=== PATIENT | female | born 1995 | race Caucasian/White ===

== ENCOUNTER 2023-01-01 11:02 | Emergency (ER) | payer OTHER ==
[~2023-01-01] VITALS: Ht 172.7 cm; Wt 113.4 kg
--- NOTE | 2023-01-01 11:03 | NUR ---
Pt MUSA CHUNG from home, for attempted suicide by taking 60+ pills of Celexa. [employer] accompany pt.
--- NOTE | 2023-01-01 11:10 | NUR ---
Spoke to Dr Phillips at [facility] regarding pt's Celexa overdose.
[2023-01-01] MEDS ORDERED: CHARCOAL ACTIVATED (WITHOUT SORBITOL) 50 G/240 ML BOTTLE PO ONE (11:15)
[2023-01-01] MEDS ORDERED: CHARCOAL ACTIVATED (WITHOUT SORBITOL) 50 G/240 ML BOTTLE ONE (11:21)
[2023-01-01 11:23] LABS: HEMATOCRIT 43.5 % (31.2-41.9); MEAN CORPUSCULAR HEMOGLOBIN 29.1 uug (24.7-32.8); MEAN CORPUSCULAR VOLUME 87.5 fL (75.5-95.3); PLATELET COUNT (AUTO) 373 K/uL (179-408)
[2023-01-01 11:41] LABS: ALANINE AMINOTRANSFERASE 19 U/L (14-59); ALKALINE PHOSPHATASE 86 U/L (50-136); ASPARTATE AMINOTRANSFERASE 18 U/L (15-37); BILIRUBIN,DIRECT 0.1 mg/dL (0.0-0.2); BILIRUBIN,TOTAL 0.5 mg/dL (0.2-1.0); CARBON DIOXIDE 26 mmol/L (21-32); CHLORIDE 104 mmol/L (98-107); CREATININE 0.8 mg/dL (0.6-1.3); GLUCOSE 108 mg/dL (74-106); POTASSIUM 4.2 mmol/L (3.5-5.1); UREA NITROGEN, BLOOD 8 mg/dL (7-18)
[2023-01-01 11:44] LABS: ETHANOL < 3 MG/DL (0-0)
--- NOTE | 2023-01-01 11:45 | NUR ---
Pt placed on 5150 hold for DTS by [facility].
[2023-01-01 11:53] LABS: ACETAMINOPHEN < 2.0 ug/mL (10-30)
[2023-01-01 12:16] LABS: *BILIRUBIN,URIN NEGATIVE (NEGATIVE); *CLARITY,URINE CLEAR (CLEAR); *COLOR,URINE YELLOW (YELLOW); *KETONES,URINE NEGATIVE (NEGATIVE); *UROBILINOGEN,URINE 0.2 E.U./dl (NORMAL); LEUKOCYTE ESTERASE ,URINE 3+ (NEGATIVE); NITRITE, URINE NEGATIVE (NEGATIVE); PH,URINE 6.5 (5.0-8.0); UGLUCOSE NEGATIVE (NEGATIVE)
[2023-01-01 12:18] LABS: *BLOOD, URINE TRACE (NEGATIVE)
[2023-01-01 12:27] LABS: *URINE HCG, QUAL NEGATIVE (NEGATIVE)
--- NOTE | 2023-01-01 12:30 | NUR ---
Recieved info from [facility] for transfering. Attempted to give report, placed on hold for 10 min and unable to.
[2023-01-01 12:33] LABS: *AMPHETAMINE, URINE NEGATIVE (NEGATIVE); *CANNABINOID, URINE POSITIVE (NEGATIVE); *COCCAINE, URINE NEGATIVE (NEGATIVE); *PHENCYCLIDINE SCREEN,URINE NEGATIVE (NEGATIVE)
--- NOTE | 2023-01-01 13:00 | NUR ---
Attempted to give report to [facility], placed on hold for 30 min and still unable to give report. Transfering [facility] ambulance waiting for report.
--- NOTE | 2023-01-01 13:25 | NUR ---
Social Work Consult requested for a 27-year-old female in the ER on a [employer] 5150 hold for attempted suicide by taking 60+ pills of Celexa. The patient states she has bipolar disorder and is having suicidal ideation. Patient states that she has attempted suicide when she was 21 years old. Patient states her primary contact is her , Francis Olivera ([phone]) and they live together at [address] [place] [address]. Patient states she currently works at [employer] and is driving. WAGNER faxed her clinical information to [facility], [facility], [facility], [facility] and [facility]. Patient states she has a history of substance abuse but has been sober for a year. Patient states she is taking medication for her bipolar disorder and depression and has a therapist through [facility], Dr. Yolanda Mathur that she has an upcoming appointment with on 01/05/2023. WAGNER provided emotional support, validation, and coping strategies and patient states she wants to try a new medication with her psychiatrist. WAGNER informed nurse, Marguerite and Dr. Mak. Dr. Mak states the patient will be transferred to [facility].
[2023-01-01] MEDS ORDERED: CEFTRIAXONE 1 G VIAL ONE (13:27)
[2023-01-01] MEDS ORDERED: LIDOCAINE HCL 1% 20 ML VIAL ONE (13:27)
[2023-01-01] MEDS ORDERED: CEFTRIAXONE 1 G VIAL IM ONE (13:30)
--- NOTE | 2023-01-01 13:45 | NUR ---
Report given to transfering [employer], Pt left Er via [facility]. All belongings plus original 5150 hold sent w/ pt.
[2023-01-01 16:03] LABS: BACTERIA,URINE MODERATE /HPF (NONE SEEN); SQUAMOUS EPITHELIAL CELL,UR MANY /HPF (NONE SEEN); WBC,URINE 80-100 /HPF (0-3)
== END 2023-01-01 14:00 | disposition short-term general hospital (02) ==
LOC: ER 11:02
DX: T43.222A Poisoning by selective serotonin reuptake inhibitors, intentional self-harm, initial encounter (principal); R94.31 Abnormal electrocardiogram [ECG] [EKG]; Y92.89 Other specified places as the place of occurrence of the external cause; Z91.51 Personal history of suicidal behavior; F31.9 Bipolar disorder, unspecified; Z20.822 Contact with and (suspected) exposure to COVID-19; R82.998 Other abnormal findings in urine
CPT/HCPCS: 80076; 80048; 81001; 84703; 85025; 36415; 93005; 99291; 96372; 87040; 80299; 80320; 80307; U0003; C9803; J0696; J3490; A4663; G0480